=== PATIENT | male | born 1960 | race African-American/Black ===

== ENCOUNTER 2016-07-18 21:33 | Inpatient (IN) | payer MEDICAID ==
[~2016-07-18] VITALS: Ht 182.9 cm; Wt 74.5 kg
[2016-07-18 22:15] LABS: Basophils # (auto) 0 uL; Basophils % (auto) 0.1 % (0.0-2.0); Eosinophils # (auto) 0.1 uL; Eosinophils % (auto) 0.7 % (0.0-7.0); Hematocrit 33.4 % (41.0-53.0); Hemoglobin 10.6 g/dL (13.5-17.5); Lymphocytes # (auto) 0.8 uL; Lymphocytes % (auto) 11.5 % (10.0-50.0); Mean Corpuscular Hemoglobin 28.4 pg (28.0-32.0); Mean Corpuscular Hgb Conc. 31.8 g/dL (32.0-36.0); Mean Corpuscular Volume 89.3 fL (80.0-100.0); Mean Platelet Volume 8.2 fL (7.4-10.4); Monocytes # (auto) 0.4 uL; Neutrophils # (auto) 6.1 uL; Neutrophils % (auto) 82.7 % (37.0-80.0); Platelet Count (auto) 255 10^3/uL (140-450); Red Cell Distribution Width 18.3 % (11.6-16.0); White Blood Cell 7.4 10^3/uL (4.4-10.8)
[2016-07-18 22:30] LABS: Albumin 3.2 g/dL (3.4-5.0); BUN/Creatinine Ratio 6.1; Bilirubin, Total 0.8 mg/dL (0.2-1.0); Calcium 9.1 mg/dL (8.5-10.1); Magnesium 2.7 mg/dL (1.6-2.6); Potassium 4.9 mmol/L (3.5-5.1); Total Protein 6.7 g/dL (6.4-8.2)
[2016-07-18 22:44] LABS: Temperature: 22.1 C (20.0-25.0)
[2016-07-19] VITALS (7 sets, daily range): BP systolic 146–187; BP diastolic 77–100
[2016-07-19] MEDS ORDERED: InsuLIN REG 1unit/0.01ml Soln (100units/ml) IV ONE (00:30)
[2016-07-19] MEDS ORDERED: LEVOFLOXACIN 500MG 100 ML IV ONE (00:30)
[2016-07-19] MEDS ORDERED: DEXTROSE (50%) 50ML SYRG IV PRN (03:30)
[2016-07-19] MEDS ORDERED: ALBUTEROL SULF 2.5 MG/0.5ML(0.5%) NEB SOLN NEB PRN (03:30)
[2016-07-19] MEDS ORDERED: methylPREDNISolone SOD SUCC 125 MG/2 ML VL IV ONE (03:30)
[2016-07-19] MEDS ORDERED: ACETAMINOPHEN 325 MG TAB PO PRN (03:30)
[2016-07-19] MEDS ORDERED: MORPHINE SULF INJ 2 MG/ML SYRINGE 1ML IV PRN (03:30)
[2016-07-19] MEDS ORDERED: hydrALAZINE HCL 20 MG/ML VL ONE (05:02)
[2016-07-19] MEDS ORDERED: hydrALAZINE HCL 20 MG/ML VL IV ONE (05:15)
[2016-07-19] MEDS: ONDANSETRON HCL 4 MG/2 ML VIAL IV PRN (05:27)
[2016-07-19] MEDS ORDERED: AMIO200T33 PO (08:01)
[2016-07-19] MEDS ORDERED: METO-169 PO (08:01)
[2016-07-19] MEDS ORDERED: AMLO10TA2 PO (08:01)
[2016-07-19] MEDS ORDERED: CLON0.1T PO (08:01)
[2016-07-19] MEDS ORDERED: LISI10TA6 PO (08:01)
[2016-07-19] MEDS ORDERED: ASP81EC PO (08:01)
[2016-07-19] MEDS ORDERED: METO5TAB2 PO (08:01)
[2016-07-19] MEDS ORDERED: DOCU-147 PO (08:01)
[2016-07-19] MEDS ORDERED: MULT-647 OR (08:01)
[2016-07-19] MEDS ORDERED: ATOR10TA52 PO (08:01)
[2016-07-19] MEDS: amLODIPine BESYLATE 5 MG TAB PO SCH (09:27)
[2016-07-19] MEDS: METOPROLOL TARTRATE 50 MG TAB PO SCH ×2 (09:28→21:03)
[2016-07-19] MEDS: cloNIDine HCL 0.1 MG TAB PO SCH ×2 (09:29→21:04)
[2016-07-19] MEDS: ACCU-CHEK COMFORT CURVE STRIP VI SCH ×4 (09:30→20:11)
[2016-07-19] MEDS ORDERED: FAMOTIDINE 20 MG TAB PO SCH (10:00)
[2016-07-19] MEDS ORDERED: ENOXAPARIN SOD 30 MG/0.3 ML SYRINGE SC SCH (10:00)
[2016-07-19] MEDS: ASPirin 81 mg TAB PO SCH (10:00)
[2016-07-19] MEDS: FAMOTIDINE 20 MG TAB PO SCH (10:00)
[2016-07-19] MEDS: InsuLIN REG 1unit/0.01ml Soln (100units/ml) SC SCH ×4 (12:00→21:16)
[2016-07-19 12:31] LABS: Basophils # (auto) 0 uL; Basophils % (auto) 0.1 % (0.0-2.0); Eosinophils # (auto) 0 uL; Hematocrit 32.8 % (41.0-53.0); Hemoglobin 10.8 g/dL (13.5-17.5); Lymphocytes # (auto) 0.4 uL; Lymphocytes % (auto) 7.7 % (10.0-50.0); Mean Corpuscular Hemoglobin 29.5 pg (28.0-32.0); Mean Corpuscular Hgb Conc. 32.9 g/dL (32.0-36.0); Mean Corpuscular Volume 89.6 fL (80.0-100.0); Mean Platelet Volume 8.6 fL (7.4-10.4); Monocytes # (auto) 0 uL; Monocytes % (auto) 0.7 % (0.0-12.0); Neutrophils # (auto) 5.1 uL; Neutrophils % (auto) 91.5 % (37.0-80.0); Platelet Count (auto) 284 10^3/uL (140-450); Red Cell Distribution Width 18.3 % (11.6-16.0); White Blood Cell 5.6 10^3/uL (4.4-10.8)
[2016-07-19 12:47] LABS: BUN/Creatinine Ratio 6.1; Potassium 5.5 mmol/L (3.5-5.1)
[2016-07-19] MEDS: HYDROcodone-ACET 5/325MG TAB PO PRN (16:12)
[2016-07-19] MEDS: LACTULOSE 20Gm/30ML SOLN PO PRN (19:05)
[2016-07-19] MEDS: ATORVASTATIN 20 MG TAB PO SCH (21:03)
[2016-07-20] VITALS (8 sets, daily range): BP systolic 141–174; BP diastolic 80–96
[2016-07-20] MEDS: ACCU-CHEK COMFORT CURVE STRIP VI SCH ×6 (03:40→21:32)
[2016-07-20] MEDS: InsuLIN REG 1unit/0.01ml Soln (100units/ml) SC SCH ×6 (03:41→21:33)
[2016-07-20 05:53] LABS: Hematocrit 29.3 % (41.0-53.0); Hemoglobin 9.6 g/dL (13.5-17.5); Mean Corpuscular Hemoglobin 29.2 pg (28.0-32.0); Mean Corpuscular Hgb Conc. 32.7 g/dL (32.0-36.0); Mean Corpuscular Volume 89.4 fL (80.0-100.0); Mean Platelet Volume 8.8 fL (7.4-10.4); Platelet Count (auto) 254 10^3/uL (140-450); Red Cell Distribution Width 18.4 % (11.6-16.0); SUSPECT VIEW TRANSMISSION; White Blood Cell 10.5 10^3/uL (4.4-10.8)
[2016-07-20 06:02] LABS: Metamyelocytes % 0; Myelocytes % 0; Promyelocytes % 0; Reactive Lymphocytes 0
[2016-07-20 06:10] LABS: Albumin 2.6 g/dL (3.4-5.0); BUN/Creatinine Ratio 7.2; Bilirubin, Total 0.5 mg/dL (0.2-1.0); Calcium 8.9 mg/dL (8.5-10.1); Potassium 5.5 mmol/L (3.5-5.1); Total Protein 5.5 g/dL (6.4-8.2)
[2016-07-20] MEDS ORDERED: EPOETIN ALFA 10,000 UNIT/1 ML VIAL IV ONE (09:45)
[2016-07-20] MEDS: ASPirin 81 mg TAB PO SCH (10:00)
[2016-07-20] MEDS: cloNIDine HCL 0.1 MG TAB PO SCH ×2 (10:00→21:32)
[2016-07-20] MEDS: METOPROLOL TARTRATE 50 MG TAB PO SCH ×2 (10:00→21:32)
[2016-07-20] MEDS: amLODIPine BESYLATE 5 MG TAB PO SCH (10:00)
[2016-07-20] MEDS: FAMOTIDINE 20 MG TAB PO SCH (10:00)
[2016-07-20] MEDS: ALBUTEROL SULF 2.5 MG/0.5ML(0.5%) NEB SOLN NEB PRN ×2 (14:00→23:10)
[2016-07-20] MEDS ORDERED: cefTRIAXone 1GM/50ML D5W 50 ML IV ONE ×2 (14:45→17:30)
[2016-07-20] MEDS ORDERED: AZITHROMYCIN 500MG/D5W 250ML 250 ML IV ONE ×2 (14:45→18:00)
[2016-07-20 14:47] LABS: Platelet Estimate Adequate
[2016-07-20 14:49] LABS: Anisocytosis Slight; Burr Cells FEW; Ovalocytes FEW
[2016-07-20 14:50] LABS: Schistocytes FEW; Tear Drop Cells FEW
[2016-07-20] MEDS: Boost Glucose Control 8 Ounces PO SCH ×2 (18:05→21:22)
[2016-07-20] MEDS: ATORVASTATIN 20 MG TAB PO SCH (21:32)
[2016-07-21] MEDS ORDERED: LEVOFLOXACIN 250MG 50 ML IV SCH (01:00)
[2016-07-21] MEDS: ACCU-CHEK COMFORT CURVE STRIP VI SCH ×6 (01:01→20:00)
[2016-07-21] MEDS: InsuLIN REG 1unit/0.01ml Soln (100units/ml) SC SCH ×6 (01:01→20:10)
[2016-07-21] MEDS: Boost Glucose Control 8 Ounces PO SCH ×4 (04:29→22:00)
[2016-07-21 04:57] VITALS: BP 162/82
[2016-07-21 05:14] LABS: Hemoglobin 9.6 g/dL (13.5-17.5); Mean Corpuscular Hemoglobin 28.5 pg (28.0-32.0); Mean Corpuscular Hgb Conc. 31.8 g/dL (32.0-36.0); Mean Corpuscular Volume 89.6 fL (80.0-100.0); Mean Platelet Volume 8.6 fL (7.4-10.4); Platelet Count (auto) 247 10^3/uL (140-450); Red Cell Distribution Width 18.8 % (11.6-16.0); SUSPECT VIEW TRANSMISSION; White Blood Cell 6.9 10^3/uL (4.4-10.8)
[2016-07-21 05:16] LABS: Metamyelocytes % 0; Myelocytes % 0; Promyelocytes % 0; Reactive Lymphocytes 0
[2016-07-21 05:38] LABS: Albumin 2.5 g/dL (3.4-5.0); BUN/Creatinine Ratio 7.1; Bilirubin, Total 0.3 mg/dL (0.2-1.0); Calcium 8.5 mg/dL (8.5-10.1); Potassium 4.6 mmol/L (3.5-5.1); Total Protein 5.3 g/dL (6.4-8.2)
[2016-07-21 07:35] VITALS: BP 167/93
[2016-07-21 07:58] LABS: Platelet Estimate Adequate
[2016-07-21 08:00] LABS: Anisocytosis Slight; Burr Cells FEW; Ovalocytes FEW; Schistocytes FEW
[2016-07-21] MEDS: cefTRIAXone 1GM/50ML D5W 50 ML IV SCH (08:26)
[2016-07-21 09:00] VITALS: BP 167/93
[2016-07-21] MEDS: AZITHROMYCIN 500MG/D5W 250ML 250 ML IV SCH (09:23)
[2016-07-21] MEDS: FAMOTIDINE 20 MG TAB PO SCH (09:27)
[2016-07-21] MEDS: ASPirin 81 mg TAB PO SCH (09:27)
[2016-07-21] MEDS: amLODIPine BESYLATE 5 MG TAB PO SCH (09:29)
[2016-07-21] MEDS: METOPROLOL TARTRATE 50 MG TAB PO SCH ×2 (09:29→21:57)
[2016-07-21] MEDS: cloNIDine HCL 0.1 MG TAB PO SCH ×2 (09:30→21:58)
[2016-07-21] MEDS: LACTULOSE 20Gm/30ML SOLN PO PRN (12:09)
[2016-07-21 13:58] VITALS: BP 141/82
[2016-07-21 18:02] VITALS: BP 147/92
[2016-07-21] MEDS: Novasource Renal 8 Ounces PO SCH (18:39)
[2016-07-21] MEDS: ALBUTEROL SULF 2.5 MG/0.5ML(0.5%) NEB SOLN NEB PRN (20:10)
[2016-07-21] MEDS: ATORVASTATIN 20 MG TAB PO SCH (21:56)
[2016-07-21] MEDS: HYDROcodone-ACET 5/325MG TAB PO PRN (21:57)
[2016-07-21] MEDS: PANTOPRAZOLE SODIUM 40 MG/10 ML VIAL IV SCH (21:58)
[2016-07-21 22:00] VITALS: BP 156/86
[2016-07-22] MEDS: ACCU-CHEK COMFORT CURVE STRIP VI SCH ×6 (00:37→20:00)
[2016-07-22] MEDS: InsuLIN REG 1unit/0.01ml Soln (100units/ml) SC SCH ×6 (00:41→20:02)
[2016-07-22 05:00] VITALS: BP 148/84
[2016-07-22] MEDS: ONDANSETRON HCL 4 MG/2 ML VIAL IV PRN ×2 (06:21→11:42)
[2016-07-22 07:30] VITALS: BP 150/87
[2016-07-22 08:00] VITALS: BP 168/89
[2016-07-22] MEDS: METOPROLOL TARTRATE 50 MG TAB PO SCH ×2 (09:34→22:12)
[2016-07-22] MEDS: PANTOPRAZOLE SODIUM 40 MG/10 ML VIAL IV SCH (09:34)
[2016-07-22] MEDS: cloNIDine HCL 0.1 MG TAB PO SCH ×2 (09:35→22:12)
[2016-07-22] MEDS: ASPirin 81 mg TAB PO SCH (09:35)
[2016-07-22] MEDS: amLODIPine BESYLATE 5 MG TAB PO SCH (09:35)
[2016-07-22] MEDS: cefTRIAXone 1GM/50ML D5W 50 ML IV SCH (09:36)
[2016-07-22] MEDS: AZITHROMYCIN 500MG/D5W 250ML 250 ML IV SCH (09:47)
[2016-07-22] MEDS: Novasource Renal 8 Ounces PO SCH ×2 (09:47→18:37)
[2016-07-22] MEDS: HYDROcodone-ACET 5/325MG TAB PO PRN (10:07)
[2016-07-22 12:00] VITALS: BP 150/78
[2016-07-22] MEDS ORDERED: EPOETIN ALFA 10,000 UNIT/1 ML VIAL IV ONE (12:00)
[2016-07-22] MEDS ORDERED: SODIUM CHL 0.9% 1000 ML BAG XX ONE (12:00)
[2016-07-22 12:52] LABS: Amylase 38 U/L (25-115)
[2016-07-22 17:00] VITALS: BP 151/89
[2016-07-22] MEDS: SUCRALFATE 1 GM/10 ML ORAL SUSP PO SCH ×2 (18:47→22:11)
[2016-07-22] MEDS: ALBUTEROL SULF 2.5 MG/0.5ML(0.5%) NEB SOLN NEB PRN (19:25)
[2016-07-22 22:00] VITALS: BP 155/77
[2016-07-22] MEDS: ATORVASTATIN 20 MG TAB PO SCH (22:12)
[2016-07-22] MEDS: PANTOPRAZOLE 40 MG TAB PO SCH (22:13)
[2016-07-23] VITALS (7 sets, daily range): BP systolic 150–165; BP diastolic 68–84
[2016-07-23] MEDS: ACCU-CHEK COMFORT CURVE STRIP VI SCH ×6 (00:23→20:37)
[2016-07-23] MEDS: InsuLIN REG 1unit/0.01ml Soln (100units/ml) SC SCH ×6 (00:29→20:37)
[2016-07-23] MEDS: SUCRALFATE 1 GM/10 ML ORAL SUSP PO SCH ×4 (06:15→23:05)
[2016-07-23] MEDS: LACTULOSE 20Gm/30ML SOLN PO PRN (06:20)
[2016-07-23] MEDS: Novasource Renal 8 Ounces PO SCH ×2 (08:00→17:13)
[2016-07-23] MEDS: ONDANSETRON HCL 4 MG/2 ML VIAL IV PRN ×2 (09:04→20:45)
[2016-07-23] MEDS: cefTRIAXone 1GM/50ML D5W 50 ML IV SCH (09:14)
[2016-07-23] MEDS: METOPROLOL TARTRATE 50 MG TAB PO SCH ×2 (10:21→23:06)
[2016-07-23] MEDS: PANTOPRAZOLE 40 MG TAB PO SCH ×2 (10:21→23:07)
[2016-07-23] MEDS: amLODIPine BESYLATE 5 MG TAB PO SCH (10:22)
[2016-07-23] MEDS: cloNIDine HCL 0.1 MG TAB PO SCH ×2 (10:22→23:06)
[2016-07-23] MEDS: AZITHROMYCIN 500MG/D5W 250ML 250 ML IV SCH (10:23)
[2016-07-23] MEDS: ASPirin 81 mg TAB PO SCH (10:23)
[2016-07-23] MEDS: ALBUTEROL SULF 2.5 MG/0.5ML(0.5%) NEB SOLN NEB PRN ×2 (14:01→23:16)
[2016-07-23] MEDS: HYDROcodone-ACET 5/325MG TAB PO PRN (17:14)
[2016-07-23] MEDS: ATORVASTATIN 20 MG TAB PO SCH (23:07)
[2016-07-24] MEDS: ACCU-CHEK COMFORT CURVE STRIP VI SCH ×7 (00:30→22:18)
[2016-07-24 05:00] VITALS: BP 153/93
[2016-07-24] MEDS: ALBUTEROL SULF 2.5 MG/0.5ML(0.5%) NEB SOLN NEB PRN ×2 (06:05→10:00)
[2016-07-24] MEDS: SUCRALFATE 1 GM/10 ML ORAL SUSP PO SCH ×4 (06:36→22:04)
[2016-07-24] MEDS: LACTULOSE 20Gm/30ML SOLN PO PRN (06:38)
[2016-07-24 08:20] VITALS: BP 154/86
[2016-07-24] MEDS: Novasource Renal 8 Ounces PO SCH ×2 (08:48→12:39)
[2016-07-24] MEDS: cefTRIAXone 1GM/50ML D5W 50 ML IV SCH (08:48)
[2016-07-24 09:00] VITALS: BP 155/82
[2016-07-24] MEDS: amLODIPine BESYLATE 5 MG TAB PO SCH (10:01)
[2016-07-24] MEDS: cloNIDine HCL 0.1 MG TAB PO SCH ×2 (10:02→22:05)
[2016-07-24] MEDS: ASPirin 81 mg TAB PO SCH (10:02)
[2016-07-24] MEDS: METOPROLOL TARTRATE 50 MG TAB PO SCH ×2 (10:02→22:05)
[2016-07-24] MEDS: PANTOPRAZOLE 40 MG TAB PO SCH ×2 (10:02→22:05)
[2016-07-24 13:00] VITALS: BP 135/79
[2016-07-24] MEDS ORDERED: INSUINJ37 SUBCUT (16:31)
[2016-07-24] MEDS ORDERED: DEXTROSE (50%) 50ML SYRG IV PRN (16:45)
[2016-07-24 17:00] VITALS: BP 156/92
[2016-07-24] MEDS ORDERED: EPOETIN ALFA 2,000 UNIT/1 ML VIAL IV ONE (17:00)
[2016-07-24] MEDS: InsuLIN REG 1unit/0.01ml Soln (100units/ml) SC SCH ×2 (17:29→22:17)
[2016-07-24 20:00] VITALS: BP 170/94
[2016-07-24] MEDS: ATORVASTATIN 20 MG TAB PO SCH (22:05)
[2016-07-25] VITALS (9 sets, daily range): BP systolic 128–178; BP diastolic 84–106
[2016-07-25] MEDS: ACCU-CHEK COMFORT CURVE STRIP VI SCH ×4 (06:27→21:39)
[2016-07-25] MEDS: InsuLIN REG 1unit/0.01ml Soln (100units/ml) SC SCH ×4 (06:27→22:09)
[2016-07-25] MEDS: SUCRALFATE 1 GM/10 ML ORAL SUSP PO SCH ×4 (06:28→21:39)
[2016-07-25] MEDS: INSULIN DETEMIR(LEVEMIR) 1unit/0.01ml Soln (100units/ml) SC SCH (06:28)
[2016-07-25 06:41] LABS: Basophils # (auto) 0.1 uL; Basophils % (auto) 0.8 % (0.0-2.0); Eosinophils # (auto) 0.1 uL; Eosinophils % (auto) 1.9 % (0.0-7.0); Hematocrit 28.5 % (41.0-53.0); Hemoglobin 9.2 g/dL (13.5-17.5); Lymphocytes # (auto) 1.6 uL; Mean Corpuscular Hemoglobin 29.4 pg (28.0-32.0); Mean Corpuscular Hgb Conc. 32.3 g/dL (32.0-36.0); Mean Corpuscular Volume 90.8 fL (80.0-100.0); Mean Platelet Volume 8.9 fL (7.4-10.4); Monocytes # (auto) 0.4 uL; Monocytes % (auto) 6.8 % (0.0-12.0); Neutrophils # (auto) 3.9 uL; Neutrophils % (auto) 64.5 % (37.0-80.0); Platelet Count (auto) 283 10^3/uL (140-450); Red Cell Distribution Width 17.7 % (11.6-16.0); White Blood Cell 6.1 10^3/uL (4.4-10.8)
[2016-07-25] MEDS: Novasource Renal 8 Ounces PO SCH ×2 (08:00→18:00)
[2016-07-25] MEDS ORDERED: GASTROGRAFIN 120 ML SOL ONE (10:14)
[2016-07-25] MEDS ORDERED: EPOETIN ALFA 3,000 UNIT/1 ML VIAL IV ONE (12:00)
[2016-07-25] MEDS ORDERED: EPOETIN ALFA 2,000 UNIT/1 ML VIAL IV ONE (12:00)
[2016-07-25] MEDS ORDERED: SODIUM CHL 0.9% 1000 ML BAG XX ONE (12:00)
[2016-07-25] MEDS: cefTRIAXone 1GM/50ML D5W 50 ML IV SCH (12:05)
[2016-07-25] MEDS: ASPirin 81 mg TAB PO SCH (12:05)
[2016-07-25] MEDS: amLODIPine BESYLATE 5 MG TAB PO SCH (12:06)
[2016-07-25] MEDS: METOPROLOL TARTRATE 50 MG TAB PO SCH ×2 (12:06→21:39)
[2016-07-25] MEDS: PANTOPRAZOLE 40 MG TAB PO SCH ×2 (12:06→21:38)
[2016-07-25] MEDS: cloNIDine HCL 0.1 MG TAB PO SCH ×2 (12:07→22:00)
[2016-07-25] MEDS ORDERED: ONDANSETRON HCL 4 MG/2 ML VIAL IV PRN (12:45)
[2016-07-25] MEDS ORDERED: CEFUROXIME 250 MG TAB PO PRN (17:45)
[2016-07-25] MEDS ORDERED: CEFUROXIME 250 MG TAB PO SCH (18:00)
[2016-07-25] MEDS: ATORVASTATIN 20 MG TAB PO SCH (21:38)
[2016-07-25] MEDS ORDERED: cloNIDine HCL 0.1 MG TAB PO SCH (22:00)
[2016-07-26 05:25] VITALS: BP 136/96
[2016-07-26] MEDS: ACCU-CHEK COMFORT CURVE STRIP VI SCH (06:13)
[2016-07-26] MEDS: InsuLIN REG 1unit/0.01ml Soln (100units/ml) SC SCH (06:14)
[2016-07-26] MEDS: INSULIN DETEMIR(LEVEMIR) 1unit/0.01ml Soln (100units/ml) SC SCH (06:14)
[2016-07-26] MEDS: SUCRALFATE 1 GM/10 ML ORAL SUSP PO SCH (06:14)
[2016-07-26] MEDS: ALBUTEROL SULF 2.5 MG/0.5ML(0.5%) NEB SOLN NEB PRN (07:37)
[2016-07-26 09:25] VITALS: BP 176/103
[2016-07-26] MEDS ORDERED: APIXABAN 5 MG TAB PO SCH (10:00)
== END 2016-07-26 10:01 | disposition left against medical advice (07) | DRG 194 ==
LOC: EDBD 21:33 → ER 21:33 → WEST WING 21:34
PROVIDERS: ADMIT Nurse Practitioner; ATTEND Internal Medicine Pulmonary Disease
PROC: 5A1D60Z (ICD-10-PCS; principal; 2016-07-20)
DX: I13.2 Hypertensive heart and chronic kidney disease with heart failure and with stage 5 chronic kidney disease, or end stage renal disease (principal); E43 Unspecified severe protein-calorie malnutrition; J18.9 Pneumonia, unspecified organism; K85.90 Acute pancreatitis without necrosis or infection, unspecified; N18.6 End stage renal disease; I42.9 Cardiomyopathy, unspecified; E11.21 Type 2 diabetes mellitus with diabetic nephropathy; I48.91 Unspecified atrial fibrillation; E87.5 Hyperkalemia; D63.8 Anemia in other chronic diseases classified elsewhere; E78.5 Hyperlipidemia, unspecified; K29.70 Gastritis, unspecified, without bleeding; E11.22 Type 2 diabetes mellitus with diabetic chronic kidney disease; R04.2 Hemoptysis; J98.4 Other disorders of lung; I50.9 Heart failure, unspecified; Z53.21 Procedure and treatment not carried out due to patient leaving prior to being seen by health care provider; J45.909 Unspecified asthma, uncomplicated; Z91.19 Patient's noncompliance with other medical treatment and regimen; Z99.2 Dependence on renal dialysis; Z68.22 Body mass index [BMI] 22.0-22.9, adult
CPT/HCPCS: 36415; 36600; 71010; 71020; 74176; 74247; 76700; 80048; 80053; 82010; 82150; 82805; 82962; 83036; 83690; 83735; 83880; 84132; 84484; 85007; 85025; 85027; 87040; 87081; 90935; 93005; 94640; 96365; 96375; C9113; J0696; J0885; J1642; J1815; J1956; J2405; Q4081

== ENCOUNTER 2016-08-12 23:16 | Inpatient (IN) | payer MEDICAID ==
[~2016-08-12] VITALS: Ht 180.3 cm; Wt 73.5 kg
[~2016-08-12 23:16] MED LIST: AMIO200T33 PO; AMLO10TA2 PO; ASP81EC PO; ATOR10TA52 PO; CLON0.1T PO; DOCU-147 PO; INSUINJ37 SUBCUT; LISI10TA6 PO; METO-169 PO; METO5TAB2 PO; MULT-647 OR
[2016-08-13 00:25] LABS: Basophils # (auto) 0 uL; Basophils % (auto) 0.3 % (0.0-2.0); Eosinophils # (auto) 0.1 uL; Eosinophils % (auto) 1.2 % (0.0-7.0); Hematocrit 30.5 % (41.0-53.0); Hemoglobin 9.8 g/dL (13.5-17.5); Lymphocytes # (auto) 1.3 uL; Lymphocytes % (auto) 24.8 % (10.0-50.0); Mean Corpuscular Hgb Conc. 32.2 g/dL (32.0-36.0); Mean Corpuscular Volume 89.9 fL (80.0-100.0); Mean Platelet Volume 7.7 fL (7.4-10.4); Monocytes # (auto) 0.4 uL; Monocytes % (auto) 6.5 % (0.0-12.0); Neutrophils # (auto) 3.6 uL; Neutrophils % (auto) 67.2 % (37.0-80.0); Platelet Count (auto) 241 10^3/uL (140-450); Red Cell Distribution Width 17.7 % (11.6-16.0); White Blood Cell 5.4 10^3/uL (4.4-10.8)
[2016-08-13 00:37] LABS: INR 0.99 (0.9-1.15); Partial Thromboplastin Time 25.8 sec (22.64-33.71); Prothrombin Time 10.7 sec (9.37-12.3)
[2016-08-13 00:42] LABS: BUN/Creatinine Ratio 5.9; Calcium 8.6 mg/dL (8.5-10.1); Magnesium 2.4 mg/dL (1.6-2.6); Potassium 3.8 mmol/L (3.5-5.1)
[2016-08-13 00:46] LABS: Bilirubin, Total 0.8 mg/dL (0.2-1.0); Total Protein 6.2 g/dL (6.4-8.2)
[2016-08-13 01:03] LABS: B-Type Natriuretic Peptide > 5000 pg/mL (0-100); Temperature: 21.9 C (20.0-25.0)
[2016-08-13] MEDS ORDERED: InsuLIN REG 1unit/0.01ml Soln (100units/ml) IV ONE (02:15)
[2016-08-13] MEDS ORDERED: LABETALOL HCL 5 MG/ML 4ML SYRINGE IV ONE (02:15)
[2016-08-13] MEDS ORDERED: ENOXAPARIN SOD 80 MG/0.8ML SYRINGE SC ONE (03:15)
[2016-08-13] MEDS ORDERED: NITROFURANTOIN (MONO) 100 mg CAP PO ONE (04:00)
[2016-08-13] MEDS: NICARDIPINE 25MG/250ML BAG KIT 250 ML IV SCH ×5 (05:30→21:10)
[2016-08-13] MEDS ORDERED: ONDANSETRON HCL 4 MG/2 ML VIAL IV PRN ×2 (07:45→11:00)
[2016-08-13] MEDS ORDERED: ASPirin-EC 81 mg tab PO ONE (10:45)
[2016-08-13] MEDS ORDERED: METOPROLOL SUCCINATE XL 50 MG TAB PO ONE (10:45)
[2016-08-13] MEDS ORDERED: DEXTROSE (50%) 50ML SYRG IV PRN (10:45)
[2016-08-13] MEDS ORDERED: LISINOPRIL 10 MG TAB PO ONE (10:45)
[2016-08-13] MEDS ORDERED: AMIODARONE HCL 200 MG TAB PO ONE (10:45)
[2016-08-13] MEDS ORDERED: amLODIPine BESYLATE 5 MG TAB PO ONE (10:45)
[2016-08-13] MEDS ORDERED: ALUM & MAG HYDROX-SIMETH LIQ(MAALOX) 30 ML PO PRN (11:00)
[2016-08-13] MEDS ORDERED: NYSTATIN TOPICAL CREAM 15GM TOP ONE (11:00)
[2016-08-13] MEDS ORDERED: LORazepam 0.5 MG TAB PO PRN (11:00)
[2016-08-13] MEDS ORDERED: MORPHINE SULF INJ 2 MG/ML SYRINGE 1ML IV PRN ×2 (11:00)
[2016-08-13] MEDS ORDERED: ACETAMINOPHEN 325 MG TAB PO PRN (11:00)
[2016-08-13] MEDS ORDERED: NITROGLYCERIN 0.4 MG SL TAB SL PRN ×2 (11:00)
[2016-08-13] MEDS ORDERED: DOCUSATE SOD 100 MG CAP PO ONE (11:15)
[2016-08-13] MEDS ORDERED: CLOPIDOGREL BISULFATE 75 MG TAB PO ONE (11:15)
[2016-08-13] MEDS: METOCLOPRAMIDE HCL 10 MG TAB PO SCH ×3 (11:30→21:06)
[2016-08-13] MEDS: B-COMPLEX W/ C & FOLIC ACID(NEPHROVITE TAB) PO SCH (11:31)
[2016-08-13] MEDS: Boost Glucose Control 8 Ounces PO SCH ×2 (12:00→19:12)
[2016-08-13] MEDS: ACCU-CHEK COMFORT CURVE STRIP VI SCH ×3 (12:30→22:00)
[2016-08-13] MEDS: SODIUM CHLOR 0.9% PF (SALINE LOCK) 10ML VIAL IV SCH ×2 (14:00→21:05)
[2016-08-13] MEDS ORDERED: EPOETIN ALFA 3,000 UNIT/1 ML VIAL IV ONE (15:30)
[2016-08-13] MEDS ORDERED: SODIUM CHL 0.9% 1000 ML BAG XX ONE (15:30)
[2016-08-13] MEDS ORDERED: EPOETIN ALFA 2,000 UNIT/1 ML VIAL IV ONE (15:30)
[2016-08-13] MEDS: InsuLIN REG 1unit/0.01ml Soln (100units/ml) SC SCH ×3 (18:09→22:00)
[2016-08-13] MEDS: ATORVASTATIN 20 MG TAB PO SCH (21:05)
[2016-08-13] MEDS: AMIODARONE HCL 200 MG TAB PO SCH (21:05)
[2016-08-13] MEDS: METOPROLOL SUCCINATE XL 50 MG TAB PO SCH (21:06)
[2016-08-13] MEDS: LISINOPRIL 10 MG TAB PO SCH (21:07)
[2016-08-13] MEDS: INSULIN DETEMIR(LEVEMIR) 1unit/0.01ml Soln (100units/ml) SC SCH (22:00)
[2016-08-13] MEDS: NYSTATIN TOPICAL CREAM 15GM TOP SCH (22:00)
[2016-08-14] MEDS: NICARDIPINE 25MG/250ML BAG KIT 250 ML IV SCH ×4 (02:00→20:27)
[2016-08-14 04:23] LABS: Basophils # (auto) 0 uL; Basophils % (auto) 0.5 % (0.0-2.0); Eosinophils # (auto) 0.1 uL; Eosinophils % (auto) 1.2 % (0.0-7.0); Hematocrit 29.7 % (41.0-53.0); Hemoglobin 9.6 g/dL (13.5-17.5); Lymphocytes # (auto) 1.4 uL; Lymphocytes % (auto) 20.3 % (10.0-50.0); Mean Corpuscular Hemoglobin 29.1 pg (28.0-32.0); Mean Corpuscular Hgb Conc. 32.5 g/dL (32.0-36.0); Mean Corpuscular Volume 89.7 fL (80.0-100.0); Mean Platelet Volume 7.6 fL (7.4-10.4); Monocytes # (auto) 0.5 uL; Monocytes % (auto) 6.6 % (0.0-12.0); Neutrophils # (auto) 4.9 uL; Neutrophils % (auto) 71.4 % (37.0-80.0); Platelet Count (auto) 256 10^3/uL (140-450); Red Cell Distribution Width 17.4 % (11.6-16.0); White Blood Cell 6.8 10^3/uL (4.4-10.8)
[2016-08-14 05:10] LABS: Albumin 2.8 g/dL (3.4-5.0); Bilirubin, Total 0.4 mg/dL (0.2-1.0); Calcium 8.9 mg/dL (8.5-10.1); Magnesium 2.6 mg/dL (1.6-2.6); Potassium 3.9 mmol/L (3.5-5.1); Total Protein 5.9 g/dL (6.4-8.2)
[2016-08-14] MEDS: SODIUM CHLOR 0.9% PF (SALINE LOCK) 10ML VIAL IV SCH ×3 (06:00→22:26)
[2016-08-14] MEDS: InsuLIN REG 1unit/0.01ml Soln (100units/ml) SC SCH ×4 (07:00→22:00)
[2016-08-14] MEDS: ACCU-CHEK COMFORT CURVE STRIP VI SCH ×4 (07:06→22:00)
[2016-08-14] MEDS: METOCLOPRAMIDE HCL 10 MG TAB PO SCH ×4 (08:00→22:00)
[2016-08-14] MEDS ORDERED: ASPirin 81 mg TAB PO SCH (10:00)
[2016-08-14] MEDS ORDERED: amLODIPine BESYLATE 5 MG TAB PO SCH (10:00)
[2016-08-14] MEDS: Boost Glucose Control 8 Ounces PO SCH ×3 (10:01→18:09)
[2016-08-14] MEDS: AMIODARONE HCL 200 MG TAB PO SCH ×2 (10:15→22:00)
[2016-08-14] MEDS: DOCUSATE SOD 100 MG CAP PO SCH (10:15)
[2016-08-14] MEDS: NIFEdipine ER 30 MG TAB PO SCH (10:16)
[2016-08-14] MEDS: METOPROLOL SUCCINATE XL 50 MG TAB PO SCH ×2 (10:16→22:00)
[2016-08-14] MEDS: B-COMPLEX W/ C & FOLIC ACID(NEPHROVITE TAB) PO SCH (10:16)
[2016-08-14] MEDS: CLOPIDOGREL BISULFATE 75 MG TAB PO SCH (10:16)
[2016-08-14] MEDS: ASPirin-EC 81 mg tab PO SCH (10:16)
[2016-08-14] MEDS: LISINOPRIL 10 MG TAB PO SCH ×2 (10:17→22:00)
[2016-08-14] MEDS: NYSTATIN TOPICAL CREAM 15GM TOP SCH ×2 (10:17→22:00)
[2016-08-14] MEDS: ATORVASTATIN 20 MG TAB PO SCH (22:00)
[2016-08-14] MEDS: INSULIN DETEMIR(LEVEMIR) 1unit/0.01ml Soln (100units/ml) SC SCH (22:00)
[2016-08-15] MEDS: NICARDIPINE 25MG/250ML BAG KIT 250 ML IV SCH ×6 (00:15→23:05)
[2016-08-15] MEDS ORDERED: DEXTROSE 50% SYRINGE 50 ML IV ONE ×3 (02:07→03:53)
[2016-08-15] MEDS: ZOLPIDEM TARTRATE 5 MG TAB PO PRN ×2 (02:29→21:48)
[2016-08-15] MEDS ORDERED: DEXTROSE (50%) 50ML SYRG IV ONE ×3 (02:30→04:00)
[2016-08-15] MEDS ORDERED: DEXTROSE 10% 1,000 ML IV ONE ×2 (05:04→05:15)
[2016-08-15 05:36] LABS: Basophils # (auto) 0 uL; Basophils % (auto) 0.5 % (0.0-2.0); Eosinophils # (auto) 0.1 uL; Eosinophils % (auto) 0.8 % (0.0-7.0); Hematocrit 33.8 % (41.0-53.0); Hemoglobin 10.8 g/dL (13.5-17.5); Lymphocytes # (auto) 2.4 uL; Mean Corpuscular Hgb Conc. 31.8 g/dL (32.0-36.0); Mean Corpuscular Volume 91.1 fL (80.0-100.0); Mean Platelet Volume 7.3 fL (7.4-10.4); Monocytes # (auto) 1.1 uL; Monocytes % (auto) 11.4 % (0.0-12.0); Neutrophils # (auto) 6.1 uL; Neutrophils % (auto) 62.3 % (37.0-80.0); Platelet Count (auto) 327 10^3/uL (140-450); Red Cell Distribution Width 17.8 % (11.6-16.0); SUSPECT VIEW TRANSMISSION; White Blood Cell 9.8 10^3/uL (4.4-10.8)
[2016-08-15 05:57] LABS: Albumin 3.3 g/dL (3.4-5.0); BUN/Creatinine Ratio 6.2; Calcium 8.7 mg/dL (8.5-10.1); Potassium 3.2 mmol/L (3.5-5.1)
[2016-08-15] MEDS: SODIUM CHLOR 0.9% PF (SALINE LOCK) 10ML VIAL IV SCH ×3 (05:59→21:36)
[2016-08-15] MEDS: ACCU-CHEK COMFORT CURVE STRIP VI SCH ×6 (06:03→21:43)
[2016-08-15] MEDS: InsuLIN REG 1unit/0.01ml Soln (100units/ml) SC SCH ×4 (06:03→21:42)
[2016-08-15] MEDS: METOCLOPRAMIDE HCL 10 MG TAB PO SCH ×4 (06:08→21:36)
[2016-08-15 06:13] LABS: Bilirubin, Total 0.5 mg/dL (0.2-1.0)
[2016-08-15] MEDS: Boost Glucose Control 8 Ounces PO SCH ×3 (09:04→18:47)
[2016-08-15] MEDS: AMIODARONE HCL 200 MG TAB PO SCH ×2 (10:00→21:36)
[2016-08-15] MEDS: ASPirin-EC 81 mg tab PO SCH (10:00)
[2016-08-15] MEDS: DOCUSATE SOD 100 MG CAP PO SCH (10:00)
[2016-08-15] MEDS: B-COMPLEX W/ C & FOLIC ACID(NEPHROVITE TAB) PO SCH (10:34)
[2016-08-15] MEDS: NIFEdipine ER 30 MG TAB PO SCH (10:35)
[2016-08-15] MEDS: NYSTATIN TOPICAL CREAM 15GM TOP SCH ×2 (10:35→21:43)
[2016-08-15] MEDS: CLOPIDOGREL BISULFATE 75 MG TAB PO SCH (10:35)
[2016-08-15] MEDS: LISINOPRIL 10 MG TAB PO SCH ×2 (10:36→21:36)
[2016-08-15] MEDS: METOPROLOL SUCCINATE XL 50 MG TAB PO SCH ×2 (10:36→21:36)
[2016-08-15] MEDS ORDERED: ADENOSINE 61 MG in GIVE UN-DILUTED 0 ML IV STA (13:02)
[2016-08-15] MEDS ORDERED: DEXTROSE (50%) 50ML SYRG IV PRN (16:15)
[2016-08-15] MEDS ORDERED: amLODIPine BESYLATE 5 MG TAB PO ONE (18:45)
[2016-08-15] MEDS: ATORVASTATIN 20 MG TAB PO SCH (21:36)
[2016-08-15] MEDS: INSULIN DETEMIR(LEVEMIR) 1unit/0.01ml Soln (100units/ml) SC SCH (22:50)
[2016-08-16] VITALS (14 sets, daily range): BP systolic 150–180; BP diastolic 61–113
[2016-08-16 03:52] LABS: Basophils # (auto) 0 uL; Basophils % (auto) 0.4 % (0.0-2.0); Eosinophils # (auto) 0.1 uL; Eosinophils % (auto) 1.2 % (0.0-7.0); Hematocrit 31.6 % (41.0-53.0); Hemoglobin 10.1 g/dL (13.5-17.5); Lymphocytes # (auto) 1.2 uL; Lymphocytes % (auto) 17.7 % (10.0-50.0); Mean Corpuscular Hemoglobin 29.2 pg (28.0-32.0); Mean Corpuscular Hgb Conc. 31.8 g/dL (32.0-36.0); Mean Corpuscular Volume 91.7 fL (80.0-100.0); Mean Platelet Volume 8.1 fL (7.4-10.4); Monocytes # (auto) 0.6 uL; Monocytes % (auto) 8.7 % (0.0-12.0); Neutrophils # (auto) 4.8 uL; Platelet Count (auto) 317 10^3/uL (140-450); Red Cell Distribution Width 17.2 % (11.6-16.0); White Blood Cell 6.6 10^3/uL (4.4-10.8)
[2016-08-16 04:04] LABS: Albumin 2.8 g/dL (3.4-5.0); Calcium 8.3 mg/dL (8.5-10.1); Potassium 4.4 mmol/L (3.5-5.1)
[2016-08-16 04:14] LABS: Bilirubin, Total 0.4 mg/dL (0.2-1.0); Total Protein 6.1 g/dL (6.4-8.2)
[2016-08-16] MEDS: NICARDIPINE 25MG/250ML BAG KIT 250 ML IV SCH ×4 (04:21→17:57)
[2016-08-16] MEDS: SODIUM CHLOR 0.9% PF (SALINE LOCK) 10ML VIAL IV SCH ×3 (06:04→23:16)
[2016-08-16] MEDS ORDERED: NICARDIPINE 25MG/250ML BAG KIT 250 ML IV ONE (06:56)
[2016-08-16] MEDS: InsuLIN REG 1unit/0.01ml Soln (100units/ml) SC SCH ×4 (07:02→22:00)
[2016-08-16] MEDS: ACCU-CHEK COMFORT CURVE STRIP VI SCH ×4 (07:20→22:00)
[2016-08-16] MEDS: METOCLOPRAMIDE HCL 10 MG TAB PO SCH ×4 (07:45→23:17)
[2016-08-16] MEDS: Boost Glucose Control 8 Ounces PO SCH ×3 (08:00→18:28)
[2016-08-16] MEDS ORDERED: SODIUM CHL 0.9% 1000 ML BAG XX ONE (09:15)
[2016-08-16] MEDS: NYSTATIN TOPICAL CREAM 15GM TOP SCH ×2 (10:00→23:20)
[2016-08-16] MEDS ORDERED: amLODIPine BESYLATE 5 MG TAB PO SCH ×2 (10:00→10:45)
[2016-08-16] MEDS ORDERED: HCTZ 25 MG TAB PO ONE (10:30)
[2016-08-16] MEDS: DOCUSATE SOD 100 MG CAP PO SCH (11:13)
[2016-08-16] MEDS: CLOPIDOGREL BISULFATE 75 MG TAB PO SCH (11:15)
[2016-08-16] MEDS: B-COMPLEX W/ C & FOLIC ACID(NEPHROVITE TAB) PO SCH (11:15)
[2016-08-16] MEDS: METOPROLOL SUCCINATE XL 50 MG TAB PO SCH ×2 (11:17→23:17)
[2016-08-16] MEDS: ASPirin-EC 81 mg tab PO SCH (11:19)
[2016-08-16] MEDS: AMIODARONE HCL 200 MG TAB PO SCH ×2 (11:19→23:17)
[2016-08-16] MEDS: LISINOPRIL 10 MG TAB PO SCH ×2 (11:20→23:18)
[2016-08-16] MEDS: cloNIDine HCL 0.1 MG TAB PO PRN ×2 (14:03→18:27)
[2016-08-16] MEDS ORDERED: NIFEdipine ER 30 MG TAB PO ONE (14:45)
[2016-08-16] MEDS: INSULIN DETEMIR(LEVEMIR) 1unit/0.01ml Soln (100units/ml) SC SCH (23:00)
[2016-08-16] MEDS ORDERED: NYSTATIN (MOUTH-THROAT) 500,000 UNITS/5 ML SUSP MT ONE (23:13)
[2016-08-16] MEDS: ATORVASTATIN 20 MG TAB PO SCH (23:16)
[2016-08-16] MEDS: ZOLPIDEM TARTRATE 5 MG TAB PO PRN (23:48)
[2016-08-17] VITALS: BP 151/81
[2016-08-17 04:00] VITALS: BP 168/88
[2016-08-17] MEDS: cloNIDine HCL 0.1 MG TAB PO PRN (05:57)
[2016-08-17] MEDS: SODIUM CHLOR 0.9% PF (SALINE LOCK) 10ML VIAL IV SCH (06:00)
[2016-08-17 06:43] LABS: Basophils # (auto) 0 uL; Basophils % (auto) 0.4 % (0.0-2.0); Eosinophils # (auto) 0.1 uL; Eosinophils % (auto) 0.9 % (0.0-7.0); Hematocrit 30.4 % (41.0-53.0); Hemoglobin 9.9 g/dL (13.5-17.5); Lymphocytes # (auto) 1.2 uL; Lymphocytes % (auto) 19.8 % (10.0-50.0); Mean Corpuscular Hemoglobin 29.8 pg (28.0-32.0); Mean Corpuscular Hgb Conc. 32.8 g/dL (32.0-36.0); Mean Corpuscular Volume 90.9 fL (80.0-100.0); Mean Platelet Volume 8.3 fL (7.4-10.4); Monocytes # (auto) 0.4 uL; Monocytes % (auto) 6.9 % (0.0-12.0); Neutrophils # (auto) 4.4 uL; Platelet Count (auto) 279 10^3/uL (140-450); Red Cell Distribution Width 17.7 % (11.6-16.0); White Blood Cell 6.2 10^3/uL (4.4-10.8)
[2016-08-17 06:58] LABS: Albumin 2.5 g/dL (3.4-5.0); Calcium 8.2 mg/dL (8.5-10.1); Potassium 4.4 mmol/L (3.5-5.1)
[2016-08-17] MEDS: ACCU-CHEK COMFORT CURVE STRIP VI SCH (07:00)
[2016-08-17] MEDS: InsuLIN REG 1unit/0.01ml Soln (100units/ml) SC SCH (07:00)
[2016-08-17 07:03] LABS: Bilirubin, Total 0.3 mg/dL (0.2-1.0); Total Protein 5.9 g/dL (6.4-8.2)
[2016-08-17] MEDS: METOCLOPRAMIDE HCL 10 MG TAB PO SCH (07:20)
[2016-08-17 08:00] VITALS: BP 177/98
[2016-08-17] MEDS: CLOPIDOGREL BISULFATE 75 MG TAB PO SCH (08:50)
[2016-08-17] MEDS: ASPirin-EC 81 mg tab PO SCH (08:50)
[2016-08-17] MEDS: B-COMPLEX W/ C & FOLIC ACID(NEPHROVITE TAB) PO SCH (08:50)
[2016-08-17] MEDS: METOPROLOL SUCCINATE XL 50 MG TAB PO SCH (08:51)
[2016-08-17] MEDS: AMIODARONE HCL 200 MG TAB PO SCH (08:51)
[2016-08-17] MEDS: LISINOPRIL 10 MG TAB PO SCH (08:52)
[2016-08-17] MEDS: DOCUSATE SOD 100 MG CAP PO SCH (08:52)
[2016-08-17] MEDS: NYSTATIN TOPICAL CREAM 15GM TOP SCH (08:53)
[2016-08-17] MEDS ORDERED: HCTZ 25 MG TAB PO SCH (10:00)
[2016-08-17] MEDS ORDERED: NIFEdipine ER 30 MG TAB PO SCH (10:00)
[2016-08-17 10:53] VITALS: BP 156/77
== END 2016-08-17 11:25 | disposition home or self-care (01) | DRG 194 ==
LOC: ER 23:16 → TELE 23:17 → UNDODEPER 08-15 09:31 → ICU WEST 08-16 14:53 → DOU IN ICU 08-16 18:17
PROVIDERS: ADMIT Internal Medicine; ATTEND Internal Medicine
PROC: 5A1D60Z (ICD-10-PCS; principal; 2016-08-13)
DX: I50.43 Acute on chronic combined systolic (congestive) and diastolic (congestive) heart failure (principal); I21.4 Non-ST elevation (NSTEMI) myocardial infarction; R65.11 Systemic inflammatory response syndrome (SIRS) of non-infectious origin with acute organ dysfunction; N18.6 End stage renal disease; D68.69 Other thrombophilia; E10.21 Type 1 diabetes mellitus with diabetic nephropathy; E44.0 Moderate protein-calorie malnutrition; I48.92 Unspecified atrial flutter; E10.22 Type 1 diabetes mellitus with diabetic chronic kidney disease; E10.65 Type 1 diabetes mellitus with hyperglycemia; I13.2 Hypertensive heart and chronic kidney disease with heart failure and with stage 5 chronic kidney disease, or end stage renal disease; E87.1 Hypo-osmolality and hyponatremia; I48.91 Unspecified atrial fibrillation; E78.5 Hyperlipidemia, unspecified; D63.1 Anemia in chronic kidney disease; Z99.2 Dependence on renal dialysis; E78.00 Pure hypercholesterolemia, unspecified
CPT/HCPCS: 36415; 71020; 80053; 80061; 82962; 83036; 83735; 83880; 84443; 84484; 85025; 85610; 85730; 90935; 93005; 93306; 96365; 96375; J0153; J1642; J1815; J2405; J3490; Q4081

== ENCOUNTER 2016-10-20 20:46 | Inpatient (IN) | payer MEDICAID ==
[~2016-10-20] VITALS: Ht 180.3 cm; Wt 71.8 kg
[2016-10-20 22:07] LABS: Basophils # (auto) 0 uL; Basophils % (auto) 0.1 % (0.0-2.0); CONDITION Y; DEFINITIVE SEE PRINTOUT; Eosinophils # (auto) 0 uL; Eosinophils % (auto) 0.1 % (0.0-7.0); Hematocrit 22.6 % (41.0-53.0); Hemoglobin 7.4 g/dL (13.5-17.5); Lymphocytes % (auto) 13.6 % (10.0-50.0); Mean Corpuscular Hemoglobin 28.4 pg (28.0-32.0); Mean Corpuscular Hgb Conc. 32.7 g/dL (32.0-36.0); Mean Corpuscular Volume 86.9 fL (80.0-100.0); Mean Platelet Volume 9.3 fL (7.4-10.4); Monocytes # (auto) 0.5 uL; Monocytes % (auto) 6.9 % (0.0-12.0); Neutrophils # (auto) 6.1 uL; Neutrophils % (auto) 79.3 % (37.0-80.0); Platelet Count (auto) 233 10^3/uL (140-450); Red Cell Distribution Width 18.4 % (11.6-16.0); White Blood Cell 7.7 10^3/uL (4.4-10.8)
[2016-10-20 22:23] LABS: INR 1.09 (0.9-1.15); Partial Thromboplastin Time 25.9 sec (22.64-33.71); Prothrombin Time 11.9 sec (9.37-12.3)
[2016-10-20 22:29] LABS: Albumin 2.2 g/dL (3.4-5.0); Calcium 7.6 mg/dL (8.5-10.1); Potassium 4.8 mmol/L (3.5-5.1)
[2016-10-20 22:31] LABS: Bilirubin, Total 0.8 mg/dL (0.2-1.0); Total Protein 5.5 g/dL (6.4-8.2)
[2016-10-20 22:32] LABS: BUN/Creatinine Ratio 10.1
[2016-10-20 22:34] LABS: Lactic Acid w/Reflex 2.2 mmol/L (0.4-2.0)
[2016-10-20] MEDS ORDERED: PANTOPRAZOLE SODIUM 40 MG/10 ML VIAL IV ONE (22:45)
[2016-10-20] MEDS ORDERED: ONDANSETRON HCL 4 MG/2 ML VIAL IV ONE (22:45)
[2016-10-20] MEDS ORDERED: SODIUM CHLORIDE 0.9% 1,000 ML IV ONE (22:45)
[2016-10-20] MEDS ORDERED: InsuLIN REG 1unit/0.01ml Soln (100units/ml) IV ONE (22:45)
[2016-10-20] MEDS ORDERED: MORPHINE SULFATE 4 MG/ML SYRG IV ONE (22:45)
[2016-10-20 23:00] LABS: REFLEX LACTIC ACID YES OR NO YES
[2016-10-21] VITALS (25 sets, daily range): BP systolic 126–170; BP diastolic 74–113
[2016-10-21] MEDS ORDERED: NITROGLYCERIN 0.4 MG SL TAB SL PRN (03:15)
[2016-10-21] MEDS ORDERED: ALBUMIN 5% 250 ML IV ONE (03:15)
[2016-10-21] MEDS ORDERED: MORPHINE SULF INJ 2 MG/ML SYRINGE 1ML IV PRN (03:15)
[2016-10-21] MEDS ORDERED: DEXTROSE (50%) 50ML SYRG IV PRN (03:15)
[2016-10-21] MEDS: PANTOPRAZOLE SODIUM 80 MG in SODIUM CHL 0.9% 60 ML IV SCH ×3 (03:15→23:15)
[2016-10-21] MEDS ORDERED: PANTOPRAZOLE SODIUM 80 MG in SODIUM CHL 0.9% 60 ML IV ONE (03:30)
[2016-10-21] MEDS: SODIUM CHLORIDE 0.9% 1,000 ML IV SCH ×2 (03:34→05:16)
[2016-10-21 04:12] LABS: Hemoglobin 5.5 g/dL (13.5-17.5)
[2016-10-21] MEDS ORDERED: PANTOPRAZOLE SODIUM 40 MG/10 ML VIAL IV ONE ×2 (05:12→23:12)
[2016-10-21] MEDS: ACCU-CHEK COMFORT CURVE STRIP VI SCH ×3 (05:53→18:36)
[2016-10-21] MEDS: InsuLIN REG 1unit/0.01ml Soln (100units/ml) SC SCH ×3 (05:55→18:40)
[2016-10-21] MEDS: METOPROLOL TARTRATE 50 MG TAB PO SCH ×2 (10:19→22:40)
[2016-10-21] MEDS: AMIODARONE HCL 200 MG TAB PO SCH ×2 (10:19→22:40)
[2016-10-21] MEDS: LISINOPRIL 10 MG TAB PO SCH (10:20)
[2016-10-21] MEDS ORDERED: MORPHINE SULFATE 4 MG/ML SYRG IV PRN (12:45)
[2016-10-21 14:35] LABS: Hematocrit 27.4 % (41.0-53.0); Hemoglobin 9.3 g/dL (13.5-17.5)
[2016-10-21] MEDS: cloNIDine HCL 0.1 MG TAB PO PRN (16:16)
[2016-10-21 19:47] LABS: Hematocrit 27.9 % (41.0-53.0); Hemoglobin 9.3 g/dL (13.5-17.5)
[2016-10-22] VITALS (10 sets, daily range): BP systolic 135–204; BP diastolic 74–107
[2016-10-22] MEDS ORDERED: MORPHINE SULFATE 4 MG/ML SYRG IV ONE (05:00)
[2016-10-22 05:07] LABS: Basophils # (auto) 0 uL; Basophils % (auto) 0.3 % (0.0-2.0); CONDITION Y; DEFINITIVE SEE PRINTOUT; Eosinophils # (auto) 0 uL; Eosinophils % (auto) 0.1 % (0.0-7.0); Hemoglobin 7.6 g/dL (13.5-17.5); Lymphocytes # (auto) 1.6 uL; Lymphocytes % (auto) 14.9 % (10.0-50.0); Mean Corpuscular Hemoglobin 30.4 pg (28.0-32.0); Mean Corpuscular Hgb Conc. 34.3 g/dL (32.0-36.0); Mean Corpuscular Volume 88.4 fL (80.0-100.0); Mean Platelet Volume 8.7 fL (7.4-10.4); Monocytes # (auto) 0.5 uL; Monocytes % (auto) 4.9 % (0.0-12.0); Neutrophils # (auto) 8.6 uL; Neutrophils % (auto) 79.8 % (37.0-80.0); Platelet Count (auto) 157 10^3/uL (140-450); Red Cell Distribution Width 15.2 % (11.6-16.0); White Blood Cell 10.7 10^3/uL (4.4-10.8)
[2016-10-22 05:25] LABS: Albumin 1.7 g/dL (3.4-5.0); BUN/Creatinine Ratio 11.2; Calcium 7.6 mg/dL (8.5-10.1); Potassium 4.6 mmol/L (3.5-5.1)
[2016-10-22 05:28] LABS: Bilirubin, Total 0.5 mg/dL (0.2-1.0); Total Protein 3.9 g/dL (6.4-8.2)
[2016-10-22] MEDS: ACCU-CHEK COMFORT CURVE STRIP VI SCH ×4 (06:00→17:49)
[2016-10-22] MEDS: InsuLIN REG 1unit/0.01ml Soln (100units/ml) SC SCH ×4 (06:00→17:49)
[2016-10-22] MEDS: LISINOPRIL 10 MG TAB PO SCH ×3 (10:00→21:38)
[2016-10-22] MEDS: METOPROLOL TARTRATE 50 MG TAB PO SCH (10:00)
[2016-10-22] MEDS: AMIODARONE HCL 200 MG TAB PO SCH ×2 (10:00→21:38)
[2016-10-22] MEDS: ONDANSETRON HCL 4 MG/2 ML VIAL IV PRN ×2 (11:21→12:29)
[2016-10-22] MEDS ORDERED: SODIUM CHL 0.9% 1000 ML BAG XX ONE (13:00)
[2016-10-22] MEDS ORDERED: EPOETIN ALFA 10,000 UNIT/1 ML VIAL IV ONE (13:00)
[2016-10-22] MEDS ORDERED: ASPirin-EC 81 mg tab PO SCH (14:54)
[2016-10-22] MEDS ORDERED: AMIODARONE HCL 200 MG TAB PO SCH (14:54)
[2016-10-22] MEDS ORDERED: METOPROLOL SUCCINATE XL 50 MG TAB PO SCH (14:54)
[2016-10-22] MEDS ORDERED: MORPHINE SULFATE 4 MG/ML SYRG IV PRN ×2 (15:00)
[2016-10-22] MEDS ORDERED: DOCUSATE SOD 100 MG CAP PO PRN (15:00)
[2016-10-22] MEDS: SODIUM CHLORIDE 0.9% 1,000 ML IV SCH (18:00)
[2016-10-22] MEDS: cloNIDine HCL 0.1 MG TAB PO SCH ×2 (18:37→21:37)
[2016-10-22] MEDS: PANTOPRAZOLE SODIUM 80 MG in SODIUM CHL 0.9% 60 ML IV SCH (20:29)
[2016-10-22] MEDS: PANTOPRAZOLE 40 MG TAB PO SCH (21:37)
[2016-10-23] MEDS: ACCU-CHEK COMFORT CURVE STRIP VI SCH ×5 (00:51→23:34)
[2016-10-23] MEDS: InsuLIN REG 1unit/0.01ml Soln (100units/ml) SC SCH ×5 (00:51→23:34)
[2016-10-23 05:00] VITALS: BP 157/87
[2016-10-23] MEDS: SODIUM CHLORIDE 0.9% 1,000 ML IV SCH (06:17)
[2016-10-23 06:35] LABS: Basophils # (auto) 0 uL; Basophils % (auto) 0.6 % (0.0-2.0); CONDITION Y; Eosinophils # (auto) 0 uL; Eosinophils % (auto) 0.5 % (0.0-7.0); Hematocrit 29.4 % (41.0-53.0); Hemoglobin 10.1 g/dL (13.5-17.5); Lymphocytes # (auto) 1.7 uL; Lymphocytes % (auto) 21.5 % (10.0-50.0); Mean Corpuscular Hemoglobin 30.3 pg (28.0-32.0); Mean Corpuscular Hgb Conc. 34.3 g/dL (32.0-36.0); Mean Corpuscular Volume 88.2 fL (80.0-100.0); Mean Platelet Volume 8.4 fL (7.4-10.4); Monocytes # (auto) 0.5 uL; Monocytes % (auto) 6.2 % (0.0-12.0); Neutrophils # (auto) 5.5 uL; Neutrophils % (auto) 71.2 % (37.0-80.0); Platelet Count (auto) 195 10^3/uL (140-450); Red Cell Distribution Width 15.3 % (11.6-16.0); White Blood Cell 7.7 10^3/uL (4.4-10.8)
[2016-10-23 06:57] LABS: Calcium 7.8 mg/dL (8.5-10.1); Potassium 4.5 mmol/L (3.5-5.1)
[2016-10-23 09:00] VITALS: BP 151/89
[2016-10-23] MEDS: AMIODARONE HCL 200 MG TAB PO SCH ×2 (09:45→21:33)
[2016-10-23] MEDS: PANTOPRAZOLE 40 MG TAB PO SCH ×2 (09:45→21:34)
[2016-10-23] MEDS: cloNIDine HCL 0.1 MG TAB PO SCH ×2 (09:46→21:34)
[2016-10-23] MEDS: amLODIPine BESYLATE 5 MG TAB PO SCH (09:46)
[2016-10-23] MEDS: LISINOPRIL 10 MG TAB PO SCH ×2 (09:47→21:34)
[2016-10-23] MEDS: METOPROLOL SUCCINATE XL 50 MG TAB PO SCH (09:47)
[2016-10-23] MEDS ORDERED: GOLYTELY 4L KIT PO ONE (11:00)
[2016-10-23] MEDS ORDERED: ALBUTEROL SULF 2.5 MG/0.5ML(0.5%) NEB SOLN NEB PRN (12:30)
[2016-10-23] MEDS ORDERED: IPRATROPIUM BROM 0.5 MG/2.5ML INH SOL NEB ONE (12:30)
[2016-10-23] MEDS ORDERED: ALBUTEROL SULF 2.5 MG/0.5ML(0.5%) NEB SOLN NEB ONE (12:30)
[2016-10-23] MEDS ORDERED: FUROSEMIDE 40 MG/4 ML VIAL IV ONE (12:30)
[2016-10-23] MEDS ORDERED: IPRATROPIUM BROM 0.5 MG/2.5ML INH SOL NEB PRN (12:30)
[2016-10-23 13:00] VITALS: BP 134/85
[2016-10-23 15:40] VITALS: BP 134/85
[2016-10-23] MEDS ORDERED: EPOETIN ALFA 10,000 UNIT/1 ML VIAL IV ONE (16:45)
[2016-10-23] MEDS ORDERED: SODIUM CHL 0.9% 1000 ML BAG XX ONE (16:45)
[2016-10-23 17:00] VITALS: BP 148/87
[2016-10-23 22:00] VITALS: BP 141/89
[2016-10-24 05:00] VITALS: BP 161/97
[2016-10-24] MEDS: ACCU-CHEK COMFORT CURVE STRIP VI SCH ×4 (05:55→22:54)
[2016-10-24] MEDS: InsuLIN REG 1unit/0.01ml Soln (100units/ml) SC SCH ×4 (05:55→22:54)
[2016-10-24 08:00] VITALS: BP 171/99
[2016-10-24 08:08] VITALS: BP 171/99
[2016-10-24] MEDS ORDERED: SODIUM CHLORIDE LOCK 10 ML ONE (08:08)
[2016-10-24] MEDS ORDERED: diphenhdrAMINE HCL 50 MG/1 ML VL ONE (08:09)
[2016-10-24 08:33] LABS: Basophils # (auto) 0 uL; Basophils % (auto) 0.5 % (0.0-2.0); CONDITION Y; Eosinophils # (auto) 0 uL; Eosinophils % (auto) 0.3 % (0.0-7.0); Hematocrit 28.6 % (41.0-53.0); Hemoglobin 9.6 g/dL (13.5-17.5); Lymphocytes # (auto) 1.2 uL; Lymphocytes % (auto) 20.7 % (10.0-50.0); Mean Corpuscular Hemoglobin 29.9 pg (28.0-32.0); Mean Corpuscular Hgb Conc. 33.4 g/dL (32.0-36.0); Mean Corpuscular Volume 89.4 fL (80.0-100.0); Mean Platelet Volume 8.2 fL (7.4-10.4); Monocytes # (auto) 0.4 uL; Neutrophils # (auto) 4.2 uL; Neutrophils % (auto) 71.5 % (37.0-80.0); Platelet Count (auto) 207 10^3/uL (140-450); Red Cell Distribution Width 15.3 % (11.6-16.0); White Blood Cell 5.9 10^3/uL (4.4-10.8)
[2016-10-24] MEDS: cloNIDine HCL 0.1 MG TAB PO PRN (08:44)
[2016-10-24 08:54] LABS: BUN/Creatinine Ratio 7.6; Potassium 4.5 mmol/L (3.5-5.1)
[2016-10-24] MEDS: fentaNYL CITRATE 100 MCG/2 ML VL ONE ×2 (10:15→10:21)
[2016-10-24] MEDS: MIDAZOLAM HCL 5 MG/ML-1ML VIAL ONE ×2 (10:15→10:21)
[2016-10-24] MEDS: AMIODARONE HCL 200 MG TAB PO SCH ×2 (11:36→20:50)
[2016-10-24] MEDS: LISINOPRIL 10 MG TAB PO SCH ×2 (11:37→20:51)
[2016-10-24] MEDS: PANTOPRAZOLE 40 MG TAB PO SCH ×2 (11:38→20:49)
[2016-10-24] MEDS: METOPROLOL SUCCINATE XL 50 MG TAB PO SCH (11:38)
[2016-10-24] MEDS: amLODIPine BESYLATE 5 MG TAB PO SCH (11:39)
[2016-10-24] MEDS: cloNIDine HCL 0.1 MG TAB PO SCH ×2 (11:41→20:50)
[2016-10-24 12:06] VITALS: BP 147/102
[2016-10-24 16:56] VITALS: BP 126/74
[2016-10-24] MEDS: diphenhdrAMINE HCL 50 MG/1 ML VL IV PRN (18:19)
[2016-10-24 21:14] VITALS: BP 140/80
[2016-10-25] MEDS: ACCU-CHEK COMFORT CURVE STRIP VI SCH ×2 (05:04→12:00)
[2016-10-25] MEDS: InsuLIN REG 1unit/0.01ml Soln (100units/ml) SC SCH ×2 (05:04→12:35)
[2016-10-25 05:36] VITALS: BP 142/90
[2016-10-25] MEDS: diphenhdrAMINE HCL 50 MG/1 ML VL IV PRN (07:54)
[2016-10-25] MEDS ORDERED: MIDAZOLAM HCL 5 MG/ML-1ML VIAL ONE (08:14)
[2016-10-25] MEDS ORDERED: SODIUM CHLORIDE LOCK 10 ML ONE (08:14)
[2016-10-25] MEDS ORDERED: fentaNYL CITRATE 100 MCG/2 ML VL ONE (08:14)
[2016-10-25] MEDS ORDERED: LIDOCAINE VISCOUS 2% 15ML UD ONE (08:14)
[2016-10-25] MEDS ORDERED: diphenhdrAMINE HCL 50 MG/1 ML VL ONE (08:15)
[2016-10-25 09:38] VITALS: BP 144/87
[2016-10-25] MEDS: cloNIDine HCL 0.1 MG TAB PO SCH (09:54)
[2016-10-25] MEDS: AMIODARONE HCL 200 MG TAB PO SCH (09:54)
[2016-10-25] MEDS: amLODIPine BESYLATE 5 MG TAB PO SCH (09:54)
[2016-10-25] MEDS: PANTOPRAZOLE 40 MG TAB PO SCH (09:55)
[2016-10-25] MEDS: LISINOPRIL 10 MG TAB PO SCH (09:55)
[2016-10-25] MEDS: METOPROLOL SUCCINATE XL 50 MG TAB PO SCH (09:55)
[2016-10-25] MEDS ORDERED: SODIUM CHL 0.9% 1000 ML BAG XX ONE (10:00)
[2016-10-25] MEDS ORDERED: EPOETIN ALFA 10,000 UNIT/1 ML VIAL IV ONE (10:00)
[2016-10-25 10:40] LABS: Hematocrit 31.6 % (41.0-53.0); Hemoglobin 10.7 g/dL (13.5-17.5)
[2016-10-25 12:16] VITALS: BP 133/86
[2016-10-25] MEDS ORDERED: PANT40T PO (13:42)
[2016-10-25 14:12] VITALS: BP 144/87
[2016-10-25 15:41] VITALS: BP 104/66
== END 2016-10-25 15:12 | disposition home or self-care (01) | DRG 253 ==
LOC: EDBD 20:46 → ER 21:03 → TELE 21:04 → TELE-CENTR 10-21 22:54 → DOU IN ICU 10-21 23:04 → TELE-CENTR 10-22 21:00
PROVIDERS: ADMIT Internal Medicine; ATTEND Internal Medicine
PROC: 5A1D60Z (ICD-10-PCS; 2016-10-20)
PROC: 30233N1 Transfusion of Nonautologous Red Blood Cells into Peripheral Vein, Percutaneous Approach (ICD-10-PCS; 2016-10-21)
PROC: 0DBL8ZX Excision of Transverse Colon, Via Natural or Artificial Opening Endoscopic, Diagnostic (ICD-10-PCS; 2016-10-24)
PROC: 0DBM8ZX Excision of Descending Colon, Via Natural or Artificial Opening Endoscopic, Diagnostic (ICD-10-PCS; principal; 2016-10-24 10:13)
PROC: 0DB68ZX Excision of Stomach, Via Natural or Artificial Opening Endoscopic, Diagnostic (ICD-10-PCS; 2016-10-25)
DX: K92.2 Gastrointestinal hemorrhage, unspecified (principal); I13.2 Hypertensive heart and chronic kidney disease with heart failure and with stage 5 chronic kidney disease, or end stage renal disease; E43 Unspecified severe protein-calorie malnutrition; D68.69 Other thrombophilia; N18.6 End stage renal disease; E10.22 Type 1 diabetes mellitus with diabetic chronic kidney disease; N25.81 Secondary hyperparathyroidism of renal origin; E10.65 Type 1 diabetes mellitus with hyperglycemia; D64.9 Anemia, unspecified; I50.9 Heart failure, unspecified; Z99.2 Dependence on renal dialysis; Z82.3 Family history of stroke; I48.0 Paroxysmal atrial fibrillation; E78.5 Hyperlipidemia, unspecified; D62 Acute posthemorrhagic anemia; D63.8 Anemia in other chronic diseases classified elsewhere; K29.60 Other gastritis without bleeding; K29.80 Duodenitis without bleeding; K44.9 Diaphragmatic hernia without obstruction or gangrene; K64.8 Other hemorrhoids; Z85.9 Personal history of malignant neoplasm, unspecified; Z71.89 Other specified counseling; Z81.1 Family history of alcohol abuse and dependence; Z68.22 Body mass index [BMI] 22.0-22.9, adult; I48.91 Unspecified atrial fibrillation
CPT/HCPCS: 36415; 36430; 43239; 45380; 51702; 71010; 74176; 80048; 80053; 82150; 82270; 82962; 83036; 83605; 83690; 83735; 84484; 85014; 85018; 85025; 85610; 85730; 86850; 86900; 86901; 86920; 87040; 90935; 96374; 96375; C9113; J0885; J1642; J1815; J2250; J2405